=== PATIENT | female | born 1990 | race Caucasian/White ===

== ENCOUNTER 2025-08-13 07:28 | Emergency (ER) | payer BC, SELFPAY ==
--- NOTE | 2025-08-13 | ECG_ITS ---
Test Reason : CP Blood Pressure : */* mmHG Vent. Rate : 73 BPM Atrial Rate : 73 BPM P-R Int : 138 ms QRS Dur : 88 ms QT Int : 388 ms P-R-T Axes : 63 70 61 degrees QTcB Int : 427 ms Normal sinus rhythm Normal ECG No previous ECGs available Referred By: Generic ED Physician Electronically Signed By: JADE TRISTAN
[2025-08-13 07:41] VITALS: BP 96/63; PULSE 70; RESP 16; TEMP 36.4; O2SAT 100; BMI 22.2
--- OUTSIDE RECORDS SUMMARY | 2025-08-13 07:57 | XMS_ITS | Encounter Summary ---
Author Organization [facility] Address [address] [facility] [address] [place] [address] Phone Care Team Providers Care Tonnage Compilation Clerk Name Role Phone Margaret Reinoso MD Primary Care Provider [phone] Margaret Reinoso MD Unavailable [phone] Yolanda Self MD Unavailable [phone] Encounter Details Date Type Department Care Team ([facility] st Contact Info) Description 08/16/2021 Ancillary Orders [facility] 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 09/07/2039 Procedure Pass [facility] PERIOPERATIVE DEPT [address] [place] [address] Scheduled Procedures Name Priority Associated Diagnoses Date/Ti me EXCISION MASS Mass of soft tissue documented as of this encounter Visit Diagnoses Not on filedocumented in this encounter Additional Health Concerns Infection Onset Date Last Indicated Resolved Time CoV-Presumed 11/11/2021 11/11/2021 12/02/2021 1:21 AM EDT COVID-19 Comment:Per Note Documentation 01/07/2022 01/04/2022 11:47 AM EDT Assessment Noted Time PHQ-2 Depression Total Score: 0 05/07/20 20 9:17 AM EDT documented as of this encounter Care Teams Tonnage Compilation Clerk Relationship Specialty Start Date End Date Margaret Reinoso MD [address] [place] [address] [email or web address] PCP - General Family Medicine 08/28/14 Margaret Reinoso MD [address] [place] [address] [email or web address] Insurance Assigned Provider 12/12/23 Yolanda Self MD [address] [place] [phone] [email or web address] Surgeon General Surgery 09/20/24 documented as of this encounter Additional Source Comments The information contained in this document represents components of the legal health record. It is not the complete legal health record.[facility]
--- OUTSIDE RECORDS SUMMARY | 2025-08-13 07:57 | XMS_ITS | Encounter Summary ---
Author Organization [facility] Address [facility] [employer] [facility] [address] [place] [address] Phone Care Team Providers Care Sexual Assault Counsellor Name Role Phone Margaret Reinoso MD Primary Care Provider [phone] Margaret Reinoso MD Unavailable [phone] Yolanda Self MD Unavailable [phone] Encounter Details Date Type Department Care Team (Late Contact Info) Description 03/23/2020 Procedure Pass [facility] PERIOPERATIVE DEPT [address] [place], [place] [phone] Social History Tobacco Use Types Packs/Day Years Used Date Smoking Tobacco: Never Smokeless Tobacco: Never Alcohol Use Standard Drinks/Week Comments Yes 4 (1 standard drink = 0.6 oz pur e alcohol) 2-3 drinks 2x/week Comments No Sex and [...] Description 01/05/2025 11:59 PM EDT Anesthesia Event [facility] PERIOPERATIVE DEPT [address] [place] [address] Deb Hanley CNP [address] [place] [address] [email or web address] 09/07/2039 Hospital Encounter [facility] PERIOPERATIVE DEPT [address] [place] [address] Yolanda Self MD [address] [place] [address] [email or web address] 09/07/2039 Procedure Pass [facility] PERIOPERATIVE DEPT [address] [place] [address] Scheduled Procedures Name Priority Associated Diagnoses Date/Ti me EXCISION MASS Mass of soft tissue documented as of this encounter Visit Diagnoses Not on filedocumented in this encounter Additional Health Concerns Infection Onset Date Last Indicated Resolved Time CoV-Presumed 11/11/2021 11/11/2021 12/02/2021 1:21 AM EDT COVID-19 Comment:Per Note Documentation 01/07/2022 01/04/2022 11:47 AM EDT Assessment Noted Time PHQ-2 Depression Total Score: 0 04/07/20 19 9:13 AM EDT documented as of this encounter Care Teams Sexual Assault Counsellor Relationship Specialty Start Date End Date Margaret Reinoso MD [address] [place] [address] [email or web address] PCP - General Family Medicine 08/28/14 Margaret Reinoso MD [address] [place] [address] [email or web address] Insurance Assigned Provider 12/12/23 Yolanda Self MD [address] [place] [phone] (work) [email or web address] Surgeon General Surgery 09/20/24 documented as of this encounter Additional Source Comments The information contained in this document represents components of the legal health record. It is not the complete legal health record.[facility]
--- OUTSIDE RECORDS SUMMARY | 2025-08-13 07:57 | XMS_ITS | Encounter Summary ---
Author Organization [facility] Address [address] [facility] [address] [place] [address] Phone Care Team Providers Care Camera Supervisor Name Role Phone Margaret Reinoso MD Primary Care Provider [phone] Margaret Reinoso MD Unavailable [phone] Yolanda Self MD Unavailable [phone] Encounter Details Date Type Department Care Team (Latest Contact Info) Description 08/16/2021 Ancillary Orders [facility] [address] [phone] Silvino Meadows, DO 65 [facility] [address] [place], [place] [phone] [email or web address] Subcutaneous mass of back Social History Tobacco Use Types Packs/Day Years [...] Description 01/05/2025 11:59 PM EDT Anesthesia Event [facility] PERIOPERATIVE DEPT [address] [place] [address] Deb Hanley, ART MANAGER [address] [place] [address] [email or web address] 09/07/2039 Hospital Encounter [facility] PERIOPERATIVE DEPT [address] [place] [address] Yolanda Self MD [address] [place] [phone] [email or web address] 09/07/2039 Procedure Pass [facility] PERIOPERATIVE DEPT [address] [place] [address] Scheduled Procedures Name Priority Associated Diagnoses Date/Ti me EXCISION MASS Mass of soft tissue documented as of this encounter Results * US Lower Back (08/16/2021 10:58 AM EST) Anatomical Region Laterality Modality L-spine Ultrasound 08/16/2021 12:5 9 PM EST Impressions 08/16/2021 3:56 PM EST No evidence of a subcutaneous mass or fluid collection at the site of clinical concern in the left lower back. ATTESTATION: I, Dr. Shyla Paredes as teaching physician, have reviewed the images for this case and if necessary edited the report originally created by Dr. Yahir Pack. Narrative 08/16/2021 3:56 PM EST US LOWER BACK TECHNIQUE: Focused ultrasound of the left lower back at the site of the patient's clinical concern. COMPARISON: ABD/PELVIS W/ CONTRAST FINDINGS: At the site of clinical concern in the left lower back near the posterior superior iliac spine, there is no evidence of a subcutaneous mass or fluid collection. Calipers were placed over subcutaneous fat lobules, which appears similar to the right side, imaged for comparison. There is no abnormal Doppler flow. Procedure Note Shyla Paredes MD - 08/16/2021 US LOWER BACK TECHNIQUE: Focused ultrasound of the left lower back at the site of thepatient's clinical concern. COMPARISON: ABD/PELVIS W/ CONTRAST FINDINGS: At the site of clinical concern in the left lower back near the posteriorsuperior iliac spine, there is no evidence of a subcutaneous mass or fluidcollection. Calipers were placed over subcutaneous fat lobules, whichappears similar to the right side, imaged for comparison. There is noabnormal Doppler flow. IMPRESSION: No evidence of a subcutaneous mass or fluid collection at the site ofclinical concern in the left lower back. ATTESTATION: I, Dr. Shyla Paredes as teaching physician, have reviewed theimages for this case and if necessary edited the report originally createdby Dr. Yahir Pack. us Silvino Meadows DO IMG US ABDOMEN Final Result documented in this encounter Visit Diagnoses Diagnosis Subcutaneous mass of back Subcutaneous mass of back documented in this encounter Additional Health Concerns Infection Onset Date Last Indicated Resolved Time CoV-Presumed 11/11/2021 11/11/2021 12/02/2021 1:21 AM EDT COVID-19 Comment:Per Note Documentation 01/07/2022 01/04/2022 2 11:47 AM EDT Assessment Noted Time PHQ-2 Depression Total Score: 0 05/07/20 20 9:17 AM EDT documented as of this encounter Care Teams Camera Supervisor Relationship Specialty Start Date End Date Margaret Reinoso MD [address] [address] PCP - General Family Medicine 08/28/14 Margaret Reinoso MD [address] [address] Insurance Assigned Provider 12/12/23 Yolanda Self MD [address] [place] [address] [email or web address] Surgeon General Surgery 09/20/24 documented as of this encounter Additional Source Comments The information contained in this document represents components of the legal health record. It is not the complete legal health record.[facility]
--- OUTSIDE RECORDS SUMMARY | 2025-08-13 07:57 | XMS_ITS | Encounter Summary ---
Author Organization [facility] Address [facility] [employer] [facility] [address] [place] [address] Phone Care Team Providers Care Histology Manager Name Role Phone Margaret Reinoso MD Primary Care Provider Stefanie Silverio MD Unavailable [phone] Margaret Reinoso MD Unavailable [phone] Yolanda Self MD Unavailable [phone] Encounter Details Date Type Department Care Team (Late st Contact Info) Description 09/09/2018 Procedure Pass [facility] 4 ENDO DEPT [address] [facility], [address]th [place] [address] Social History Tobacco Use Types Packs/Day Years Used Date Smoking Tobacco: Never Smokeless Tobacco: Never Alcohol Use Standard Drinks/Week Comments Yes 4 (1 standard drink = 0.6 oz pure alcohol) 2-3 drinks 2x/week : recc limit Comments No Sex and Gender Information Value [...] Description 01/05/2025 11:59 PM EDT Anesthesia Event [facility] PERIOPERATIVE DEPT [address] [place] [address] Deb Hanley, TRUCK REPAIR SUPERVISOR [address] [place] [address] [email or web address] 09/07/2039 Hospital Encounter [facility] PERIOPERATIVE DEPT [address] [place] [address] Yolanda Self MD [address] [place] [address] [email or web address] 09/07/2039 Procedure Pass [facility] PERIOPERATIVE DEPT [address] [place] [address] Scheduled Procedures Name Priority Associated Diagnoses Date/Ti me EXCISION MASS Mass of soft tissue documented as of this encounter Visit Diagnoses Not on filedocumented in this encounter Additional Health Concerns Infection Onset Date Last Indicated Resolved Time CoV-Presumed 11/11/2021 11/11/2021 12/02/2021 1:21 AM EDT COVID-19 Comment:Per Note Documentation 01/07/2022 01/04/2022 11:47 AM EDT Assessment Noted Time PHQ-2 Depression Total Score: 0 10/15/19 18 5:20 PM EST documented as of this encounter Care Teams Histology Manager Relationship Specialty Start Date End Date Margaret Reinoso MD [address] [place] [address] [email or web address] PCP - General Family Medicine 08/28/14 Stefanie Silverio MD 55 [facility] [address], [place] [address] [email or web address] Insurance Assigned Provider 06/12/18 07/09/19 Margaret Reinoso MD [address] [address] [email or web address] Insurance Assigned Provider 12/12/23 Yolanda Self MD [address] [place] [address] [email or web address] Surgeon General Surgery 09/20/24 documented as of this encounter Additional Source Comments The information contained in this document represents components of the legal health record. It is not the complete legal health record.[facility]
--- OUTSIDE RECORDS SUMMARY | 2025-08-13 07:57 | XMS_ITS | Clinical Summary ---
Author Organization [facility] Address [facility] eInstruction by [employer] [facility] [address] [place] [phone] Phone Care Team Providers Care Guard Immigration Name Role Phone Margaret Reinoso MD Primary Care Provider [phone] Margaret Reinoso MD Unavailable [phone] Yolanda Self MD Unavailable [phone] Allergies Active Allergy Reactions Criticality Noted Date Comments Gluten Protein Diarrhea Medium 03/21/2020 Milk Containing Products (Dairy) Diarrhea,Nausea and/or Vomiting Medium 09/09/2018 Medications lamoTRIgine (LAMICTAL) 200 MG tablet Take 1 tablet by mouth nightly at bedtime. 4 Active levonorgestrel (MIRENA) 20 mcg/24 hr (5 years) intrauterine device Replaced 03/23/2020 5 Active clonazePAM (KLONOPIN) 1 MG tablet Take 1 mg by mouth nightly at bedtime. 8 Active cholecalciferol (VITAMIN D3) 2,000 unit capsule Take 2,000 Units by mouth daily. + CA++ Active methylcellulose (CITRUCEL) 500 mg Tab Take 1 g by mouth nightly at bedtime. Active minocycline (MINOCIN) 100 MG capsule Take 100 mg by mouth 2 (two) times a day as needed. Acne 0 Active acetylcysteine (NAC ORAL) Take by mouth. 12/2020: psych said OK ; for OCD ; plans to take Active dextroamphetamin e-amphetamine (ADDERALL XR) 25 MG 24 hr capsule Take 25 mg by mouth every morning. Restart 08/2022 Active valACYclovir (VALTREX) 1000 MG tablet TAKE 2 TABS AT 1ST ONSET, REPEAT DOSE IN 12 HOURS MAX 4 TAB/FLARE 20 tablet 4 Active betamethasone dipropionate 0.05 % ointmentIndicati ons:Dyshidrotic dermatitis Apply topically 2 (two) times a day. Apply to affected areas of the hands twice a day for two weeks on, then take two weeks off. (Two weeks on/two weeks off cycles.) 30 g 2 4 Active cyclobenzaprine (FLEXERIL) 10 MG tablet Take 1 tablet (10 mg total) by mouth 3 (three) times a day as needed (muscle spasms). caution may make drowsy; caution with driving/alcohol/ machinery 30 tablet 4 Active chlorhexidine (HIBICLENS) 4 % external liquid Apply in the shower daily x 3 days starting 2 days prior to procedure and do the 3rd treatment the morning of procedure. Follow detailed instructions provided by your surgeons office. 473 mL 5 Active psyllium husk (METAMUCIL ORAL) Take 1 Dose by mouth nightly at bedtime. Active acetaminophen (TYLENOL) 500 MG tablet Take 500-1,000 mg by mouth every 6 (six) hours as needed for pain (specific location in comments). Active mupirocin (BACTROBAN) 2 % ointmentIndicati ons:Scratch of hand, right, initial encounter Apply topically 3 (three) times a day. 30 g 5 Active Active Problems Problem Noted Date Diagnosed Date Lower back pain 11/13/2023 Overview (06/11/2024): 06/2024: MRI: no masses, L45 mild OA/small melida disc w/o signif NF, since March w/o trigger has L sciatica sx which have worsened bunion R driving foot; entire back tisha L LB; declines PT no time ; refer to physiatry; t/c prednisone ( revd SEs); t/c COX2 as NSAID cause GI ; Order flexeril; might do bunion surg 10/2024; see pt instrxn for sx mgmt ; t/c sita/elavil ( SE's revd) 03/2024: see mass of lower back; again order US , see TC , after visit 11/2023: x 2 d, Left LB; trigger heavy back pk + moved things; if pushes L LB briefly feels sx to L toes w/o numb/tingly; Neg SLR; OK DTR's/neuro exam;see pt instrxn for mgmt; Plans get massage ; T/c US for ~ 2 cm lump likely muscle knot/inflammation; recc heat/ice bid x 2 weeks Onychomycosis 08/20/2023 Overview (08/20/2023): 08/2023: L thumb see picture; few weeks; f/u w/ derm to confirm; Order penlac; t/c lamisil x 3 mo w/ LFT baseline ( last LFT OK 12/2022 scanned) and 1 mo on lamisil Hypoglycemia 12/08/2022 Overview (12/08/2022): 12/2022: glu 55 non fast, had coff/toast , No H/o syncope; no hypoglycemia sx; recc avoid long periods of fast, have prot q meal/snack; ( could be false neg if specimen not run fast after draw) Family history of arrhythmia 12/08/2022 Overview (12/08/2022): 12/2022: brother 27 yo , dad has it too; EKG today Poss ectopic atrial rhythm Chest pain 12/08/2022 Overview (12/08/2022): 12/2022: far lateral Left chest > palpitations, occurs when has work stress; EKG today : Poss ectopic atrial rhythm; PE labs OK COVID-19 11/12/2021 Overview (01/07/2022): 01/07/22: after visit covid PCR Pos 01/04 [facility] w/ sx started 01/01 w/ neg home test 11/14/2021: Mild chest tightness exacerbated by coughing o/w no red flag symptoms. Would consider covid positive and 11/11 day 0. Not high risk and boosted. Isolation guidelines discussed. OTC/home remedies discussed. ED precautions discussed. 11/11/2021: covid Ag POS 11/11/21; [facility] pend; see PG for ER parameters, contact precautions Rotator cuff disorder, right 11/12/2021 Overview (11/12/2021): 11/2021: since Jun; no trigger; Recc 2 weeks rest, activity as tolerated, avoid aggravating positions/activities, ice > heat 20min 2x/d , aleve 1 tab qd w/ food x 2 weeks , topicals ( biofreez,) order PT, after visit sent stretches, t/c ortho who will order scan if needed Gynecomastia 08/21/2021 Overview (08/21/2021): 08/2021: b/l w/o d/c; has IUD so no periods; sees [facility] tomorrow for LLQ mild discomfort; Left chest wall pain suspect MSK; recc rest x 2 weeks/activity as tolerated, heat/ice, tyl/advil prn ; Order estradiol/prolactin + early PE labs( ALL OK) Palpable mass of lower back 07/02/2021 Overview (09/26/2024): 09/2024:Yolanda Self MD Surgeon: concerned this would not alleviate her back pain which sounds more related to a disc or nerve issue given the radiation down her buttock. She seems quite dismayed by this and plans to speak with her pain doctor, after visit 06/2024: MRI: no masses, L45 mild OA/small melida disc, pt wants explanation why 05/2024 US said lump grew from 3+ cm to 4+ cm, when it was said the 08/2021 US was Neg, concerned how long was there and nothing done; I'll have to ask radiologist, h/w MRI confirms 1st US, no masses 03/2024: again order US ( 05/2024 : partially encapsulated lipoma w/ interval growth/internal vascularity, recc MRI ) see TC after visit , see LBP 06/2021:AY: Noticed last week. Was initially painful but improving. Mobile. Approx 1.5 cm. Medial to the left PSIS. Most likely lipoma vs cyst.- US ordered ( NEG 08/2021) OVERVIEW: see LBP Cold sore 12/17/2020 Overview (01/03/2024): 12/2023: ?R; see picture ; PG/TC; cluster R nares vesicular w/o yell crust; Order valtrex 1gm tid x 7d in case early shingles; keep appt in 2d( was unable to come to appt work emergency, got lesions in mouth as well, better now, opted not to take Valtrex shingles dose, though did crab picker) 12/17/2020: R lower lip pink solitary papule w/o crust, w/o vesicle, started 12/13 ( day 4); 3rd flare in 6 weeks ; monitor freq flares w/ std high dose abortive regimen OVERVIEW: X years; R lip favorite side > L , not sure if 1st time on L or not said 12/2020; h/o under nose as well; Revd Contagious, speed matters, risk resistance if take prevention dose duration 4-12 months; Valtrex:SE: depression, aches, dysmenorrhea, elev LFT, plts , photosensitivity MEDS: Valtrex 1gm take 2 tabs 1st onset, repeat in 12 hr; max 4 tab/flare 12/2020 switch from 500mg bid x 3 d/flare Tinea pedis 12/17/2020 Overview (12/17/2020): 12/2020: she used lotrimin Ultra bid x 1 week (other option on tube was qd x 4 weeks) , good about changing shoes/socks. Still there a little bit. Recc retreat Bid x 2 weeks Regular astigmatism of both eyes 11/23/2020 Intrauterine device 04/26/2019 Overview (05/07/2020): mirena 12/2014, replaced 03/2020 by seafood and service meat manager Other acne 04/07/2019 Overview (12/30/2020): 12/2020: after visit notice from [facility] derm 04/2020: sees derm 04/2019: cystic , derm at [facility] , plans off spironolactone 100mg and start accutane , get copy of recent labs; s/p I& D once on face . S/p minocin for perioral dermatitis MEDS: Doxy 100mg bid prn Gastroparesis 06/09/2018 Overview (05/07/2020): 04/2020: plans GI appt soon for recent flare gastroparesis 04/2019: stable not IBS off EES 09/2018: after visit : EGD neg HPylori/Celiac; mild inflammation; cont gastroparesis mgmt 06/2018: after visit per [facility] Dr Stefanie Silverio: MILD DELAY IN STOMACH EMPTYING, TAKE ERYTHROMYCIN 50 MG THREE TO FOUR TIMES DAILY, 1/2 HOUR BEFORE MEALS AND AT BEDTIME. YOU CAN TAKE THIS MEDICATION NEEDED. IF YOU TAKE IT DAILY, CYCLE IT: 2 WEEKS ON, 1 WEEK OFF. MEDS: H/o EES ineffective citrucel qd b/c not allowed dietary fiber Dairy free + low gluten Omeprazole 20 mg qd Gastroesophageal reflux disease 10/15/2017 Overview (12/08/2022): 12/2022: cont prilosec OTC prn rare use ; see gastroparesis 09/2018: EGD gastritis 05/2018: GI Dr Silverio :mild delay gastric empty scan, recc low fat, low fiber 12/2017: again lifestyle for epig pain 3 nights/bloating/nausea; eating makes it better as does BM; stop flacotzer OVERVIEW: s/p celiac Ab, HPylori Ab, CRP in 09/2015 MEDS: citrucel qd Dairy free + low gluten Omeprazole 20 mg qd prn by 12/2022; h/o qd H/o EES ineffective S/p recc Mylanta gas 12/2017 S/p recc simethicone 12/2017 Proteinuria 10/15/2017 Overview (10/15/2017): 10/2017: UA per psych for Li++ had 1-2 + protein. Recc rechk. Physical exam 04/12/2014 Overview (01/22/2023): 12/08/22 EKG for CP/palpit 12/2022 for fam Hx bro @ 28yo w/ Afib PAP 11/2021; h/o 03/2020 dysplasia on Bx colpo; has Dr Mojica Dad w/ precancer polyps she showed me letter 12/2022, ( see PG from pt she asked Dr Chowdhury office and was told can get scope regular time) 07/2019 : CBC, FLP, LFT OK partial PE labs, declines TSH/kidney/glu H/o labs for Li+ q [address] Diana (asked cc me on all labs please, she agrees) H/o recc once before 31yo get FLP , declines today s/p yet again ca++ 1000mg/day diet sheet S/p Declines recc urine GC/Chlam today , got seafood and service meat manager Specialist: [facility], psych , not FURNACE REPAIR MECHANIC Michele also does therapy; still plans podiatry for new orthotics , has energy conservation representative , GI Dr Chowdhury( told her ask him re 1st colo timing) Bipolar disorder 10/08/2012 Overview (12/08/2022): 12/2022:PHQ10/GAD10; Dr Madison(2020) psych q week req EKG for ADD meds,dad/ 20 yo brother had Afib; cont [id number]/lamictal 200mg; restarted Adderall XR 25mg 08/2022: stable; Dr Mariana Diana met 04/2017(sees q week) OVERVIEW: + OCD; no past hosp or suicide attempts; AVOID: adderall/straterra = kd, zoloft kd, zyprexa akithisia; s/p again aware needs planned preg (currently has IUD from seafood and service meat manager );04/23: EKG to eval QTC and ? Start for anafrinil. EKG show QTC 412ms. As per up to date normal QTC for woman <450ms. Recc minimize pot/etoh Medication: Adderall XR 25mg qd restart 12/2022; h/o college use Lamotrigine 200 MG PO QD, again recc planned preg Klonopin 1mg qhs inc 12/2022; h/o 0.5mg avg 2-3 d/wk OFF said 04/2019 Jacobus 300 MG BID, no need OFF Melatonin 5mg qhs prn OFF 04/2020 Trilafon ( perphenazine) 2mg bid H/o wellbutrin Resolved Problems Problem Noted Date Diagnosed Date Resolved Date S/P LEEP 05/07/2020 12/08/2022 Overview (05/07/2020): 04/2020: [facility] Dr Magana hi grade dysplasia on colpo Constipation 10/15/2017 11/12/2021 Overview (01/03/2018): 12/2017: Assessmed: baseline; s/p fluids, fiber , fitness; see GERD;s/p celiac Ab, HPylori Ab, CRP in 09/2015 MEDS: Colace qd said 12/2017 Fibercon 12/2017: recc simethicone/mylanta gas Presence of intrauterine contraceptive device 04/02/20 17 05/07/2020 Overview (04/02/2017): Mirena 12/2104 Uncoded Oral contraception 04/03/2014 0 04/29/2016 Overview (10/28/2014): Oral contraception Immunizations Immunization Administration Dates Next Due COVID-19 (Pre-06/29) Pfizer Vaccine, mRNA, PF 12/27/2020 DTaP, unspecified formulation 05/02/1996 ,11/09/1992,1991,08/25,1991 HPV,quadrivalent 03/29/2007,11/09/2006, 7 Hepatitis B, unspecified formulation 10/31/2003, 04/24/2003,05/03/2002 Hib, unspecified formulation 07/27/1992, 1991,1991,07/05 Influenza Quadrivalent MDCK Preservative Free IM 09/27/2023,06/12/2020,06/04/2019 Influenza Quadrivalent Prese rvative Free IM 06/23/2022,07/02/2021,05/06/2018,08/14,07/16/2015 Influenza, Unspecified Formulation 06/04,06/08/2017,05/30/2009,07/01,07/05/2007,08/15/2006,10/15/2004 ,07/04/2003 MMR 05/02/1996,07/27/1992 Meningococcal MCV4P 04/17/2011,06/02/2006 Polio, Unspecified Formulation 6,11/09/1992,1991,07/05 Rabies Unspecified Formulation 3,05/09/1993,05/08/1993,05/04,05/03/1993,05/02/1993 Td, unspecified formulation 04/18/2004 Tdap 06/20/2019,04/08/2010 Family History Medical History Relation Comments Anxiety disorder Brother Atrial fibrillation Father Atrial fibri llation Anxiety disorder Maternal Aunt Dementia Maternal Grandfather Hypertension Maternal Grandfather Dementia Maternal Grandmother Glaucoma Maternal Grandmother Anxiety disorder Mother Pancreatic cancer Paternal Grandfather Stomach cancer Paternal Grandmother more likely than colon Breast cancer Neg Hx Colon cancer Neg Hx Coronary artery disease Neg Hx Diabetes Neg Hx Macular degeneration Neg Hx Melanoma Neg Hx Ovarian cancer Neg Hx Stroke Neg Hx Relation Status Comments Brother Father Maternal Aunt Maternal Grandfather Maternal Grandmother Mother Paternal Grandfather Paternal Grandmother Social History Tobacco Use Types Packs/Day Years Used Date Smoking Tobacco: Never Passive Smoke Exposure: Never Smokeless Tobacco: Never Alcohol Use Standard Drinks/Week Comments Not Currently 0 (1 standard drink = 0.6 oz pur e alcohol) 1-2 drinks 0 - 2x/week Education Answer Date Recorded Are you interested in more education? Not on velasquez e 01/07/2023 Are you concerned about learning? Not on file 01/07/2023 No 01/07/2023 No 01/07/2023 Digital Access Answer Date Recorded No 02/01/2023 No 02/01/2023 Reliable internet access at home? Not on file 02/01/2023 Device with a working camera? Not on file Intimate Partner Violence Answer Date R ecorded Are you denied basic needs s uch as food, clothing, or medical care? No 02/13/2025 In the past 12 months have y ou been in a relationship with a person who hurts, threatens, or tries to control you? No 02/13/2025 Are you denied basic needs s uch as food, clothing, or medical care? No 02/13/2025 In the past 12 months have y ou been in a relationship with a person who hurts, threatens, or tries to control you? 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 Not on file Not on file Not on file Last Filed Vital Signs Vital Sign Reading Time Taken Comments Blood Pressure 126/69 02/13/2025 9:36 PM EDT Pulse 75 02/13/2025 9:36 PM EDT Temperature 37 C (98.6 F) 02/13/2025 9:36 PM EDT Respiratory Rate 16 02/13/2025 9:36 PM EDT Oxygen Saturation 100% 02/13/2025 9:36 PM EDT Inhaled Oxygen Concentration - - Weight 59 kg (130 lb) 02/13/2025 9:36 PM EDT Height 162.6 cm (5' 4 ) 02/13/2025 9:36 PM EDT Body Mass Index 22.31 02/13/2025 9:36 PM EDT Plan of Treatment Upcoming Encounters Date Type Department Care Team (Late st Contact Info) Description 01/05/2025 11:59 PM EDT Anesthesia Event [facility] PERIOPERATIVE DEPT [address] [place] [address] Deb Hanley, BRIDGE PAINTER HELPER [address] [place] [address] 09/07/2039 Hospital Encounter [facility] PERIOPERATIVE DEPT [address] [place] [address] Yolanda Self MD [address] [place], [place] [id number] [email or web address] 09/07/2039 Procedure Pass [facility] PERIOPERATIVE DEPT [address] [place] [address] Scheduled Procedures Name Priority Associated Diagnoses Date/Ti me EXCISION MASS Mass of soft tissue Health Maintenance Due Date Last Done Comments PAP SMEAR 12/03/2024 12/03/2021, 11/06, 03/27/2021, Additional history exists INFLUENZA VACCINE (#1) 2025 , 09/27/2023, 06/23/2022, Additional history exists COVID-19 VACCINE ( season) 2025 09/27/2023, 06/23/2022, 08/04/2021, Additional history exists DEPRESSION SCREENING 09/13/2025 09/13/2024, 08/19/20 23 IUD 03/23/2028 03/23/2020 Adult Td,Tdap Booster 06/20/2029 06/20/2019 , 04/08/2010, 04/18/2004 HIB VACCINES Completed 07/27/1992, 10/09, 1991, Additional history exists MENINGOCOCCAL VACCINES (ACWY) Aged Out 04/17/2011, 06/02/2006 No longer eligibl e based on patient's age to complete this topic HEPATITIS C SCREENING Completed 11/16/2018 , 11/16/2018, 11/16/2018, Additional history exists HIV ONE-TIME SCREENING (18-65 YEARS) Completed 11/16/2018 SMOKING STATUS SCREENING (Once After 26 Yrs) Completed 04/16/2025 HEPATITIS A VACCINES Aged Out No long er eligible based on patient's age to complete this topic MENINGOCOCCAL VACCINES (B) Aged Out N o longer eligible based on patient's age to complete this topic PNEUMOCOCCAL VACCINES (0-49 years) Aged Out No longer eligible based on patient's age to complete this topic Medical Devices Implanted Type Area Salesperson [employer] Device Identifier Shelf Expiration Date Model / Serial / Lot Mirena Device Contraceptive 52mg Iud Mirena - Must Order In Multiples Of 5 - [id number] Implanted:Qty: 1 on 03/23/2020 by Kwasi Jarvis MD at [facility] N/A: Uterus [employer] 03/06/2022 [id number] / / [id number] Procedures Procedure Name Priority Date/Time Associated Diagnosis Comments PAP TEST Routine 12/03/2021 12:00 AM EDT HEPATITIS C ANTIBODY, QUALITATIVE Routine 11/16/2018 8:31 AM EDT Concern about sexually transmitted disease in female without diagnosis from Last 3 Months or Most Recently Relevant to Health Maintenance Results * Pap Smear (12/03/2021 12:00 AM EDT) 12/03/2021 12/04/2021 10: 13 AM EDT Narrative SEE NARRATIVE - 12/12/2021 12:58 PM EDT [facility] [address] [place] [address] DRUG ABUSE WORKER Cytology Report FINAL DIAGNOSIS A. CERVICAL, LIQUID BASED SPECIMEN: SPECIMEN ADEQUACY: Satisfactory for evaluation; transformation zone present. INTERPRETATION: NEGATIVE FOR INTRAEPITHELIAL LESION OR MALIGNANCY. Electronically Signed Out By: ALEXIA Silva(ASCP) ALEXIA Ryan (ASCP) Cervical cytology is a screening test primarily for squamous cancers and precursors and has associated false-negative and false-positive results. New technologies such as liquid-based preparations may decrease but will not eliminate all false-negative results. Regular sampling and follow-up of unexplained clinical signs and symptoms are recommended to minimize false negative results. Interpretation of this material was performed at: [facility], Department of Pathology [address] [place] [address] Correspondence Clerk: Jarrod Vila M.D. CLINICAL HISTORY Date of Last Menstrual Period: Not Provided Contraceptive History: IUD Treatment History: LEEP: s/p 03/2020 Other Clinical Conditions: Abnormal PAP: ANISHA II SPECIMEN SOURCE A: CERVICAL, LIQUID BASED SPECIMEN GROSS DESCRIPTION One ThinPrep vial received. Patient Name: DALY AVENDAÑO : 1990 (Age: 31) Sex: F Institution: [facility] Location: [facility] Date of Collection: 12/03/2021 Date of Reported: 12/12/2021 12:58 Results to: Maggie Zimmerman MD us Maggie Zimmerman MD CYTOLOGY ORDERABLES Final Result SEE NARRATIVE * Hepatitis C antibody, qualitative (11/16/2018 8:31 AM EDT) HCV ANTIBODY Negative Negative [facility] Comment:Test Methodology: Ad via [employer] XP 11/16/2018 8:31 AM EDT 11/16/2018 11:23 AM EDT us Maggie Zimmerman MD LAB BLOOD BKR ORDERABLES F inal Result Performing Organization Address City/[facility]/ZIP Co de Phone Number [facility] [address] [place] [address] from Last 3 Months or Most Recently Relevant to Health Maintenance [place] [address] [place] [address] PPO EPO [facility] PPO EPO [facility] PPO EPO [facility] PPO [facility]PO [facility] PPO EPO [facility] PPO EPO [facility] PPO EPO [facility] PPO EPO [facility] PPO EPO [facility] PPO EPO [facility] PPO [facility]PO [facility] PPO EPO [facility] PPO EPO [facility] PPO EPO [facility] PPO EPO Care Teams Guard Immigration Relationship Specialty Start Date End Date Margaret Reinoso MD [address] [place] [address] [phone] [email or web address] PCP - General Family Medicine 08/28/14 Margaret Reinoso MD [address] [place] [address] [phone] [email or web address] Insurance Assigned Provider 12/12/23 Yolanda Self MD [address] [place] [id number] [email or web address] Surgeon General Surgery 09/20/24 Additional Source Comments The information contained in this document represents components of the legal health record. It is not the complete legal health record.[facility]
--- OUTSIDE RECORDS SUMMARY | 2025-08-13 07:57 | XMS_ITS | Encounter Summary ---
Author Organization [facility] Address [address] [facility] [address] [place] [address] Phone Care Team Providers Care Doctor Podiatric Medicine Name Role Phone Margaret Reinoso MD Primary Care Provider [phone] Margaret Reinoso MD Unavailable [phone] Yolanda Self MD Unavailable [phone] Encounter Details Date Type Department Care Team (Late st Contact Info) Description 05/18/2024 Procedure [facility] - MRI, Main [place] [address] [place] [address] Social History Tobacco Use Types Packs/Day Years [...] Intimate Partner Violence Answer Date R ecorded Denied Basic Needs Not on file 12/07/2022 In the past 12 months have y ou been in a relationship with a person who hurts, threatens, or tries to control you? No 12/07/2022 Worried food would run out Not on file 12/07 In the past 12 months have y ou been in a relationship with a person who hurts, threatens, or tries to control you? No 12/07/2022 Comments No Sex and Gender Information Value [...] Description 01/05/2025 11:59 PM EDT Anesthesia Event [facility] PERIOPERATIVE DEPT [address] [place] [address] Deb Hanley, LANDSCAPER HELPER [address] [place] [address] [email or web address] 09/07/2039 Hospital Encounter [facility] PERIOPERATIVE DEPT [address] [place] [address] Yolanda Self MD [address] [place] [address] [email or web address] [email or web address] 09/07/2039 Procedure Pass [facility] PERIOPERATIVE DEPT [address] [place] [address] Scheduled Procedures Name Priority Associated Diagnoses Date/Ti me EXCISION MASS Mass of soft tissue documented as of this encounter Visit Diagnoses Not on filedocumented in this encounter Additional Health Concerns Assessment Noted Time PHQ-9 Depression Total Score: 8 08/19/20 23 11:21 PM EST PHQ-2 Depression Total Score: 2 08/19/20 23 11:21 PM EST documented as of this encounter Care Teams Doctor Podiatric Medicine Relationship Specialty Start Date End Date Margaret Reinoso MD [address] [place] [address] [email or web address] PCP - General Family Medicine 08/28/14 Margaret Reinoso MD [address] [place] [address] [email or web address] Insurance Assigned Provider 12/12/23 Yolanda Self MD [address] [place] [address] [email or web address] Surgeon General Surgery 09/20/24 documented as of this encounter Additional Source Comments The information contained in this document represents components of the legal health record. It is not the complete legal health record.[facility]
--- OUTSIDE RECORDS SUMMARY | 2025-08-13 07:57 | XMS_ITS | Encounter Summary ---
Author Organization [facility] Address [address] [place] [address] Phone Care Team Providers Care Professor Of Radiology Name Role Phone Margaret Reinoso MD Primary Care Provider Margaret Reinoso MD Unavailable [phone] Margaret Reinoso MD Unavailable [phone] Margaret Reinoso MD Unavailable [phone] Stefanie Silverio MD Unavailable [phone] Margaret Reinoso MD Unavailable [phone] Yolanda Self MD Unavailable [phone] Reason for Referral * Consultation (Within 2 weeks) - Closed Specialty Diagnoses / Procedures Referred By Chinmay morgan Referred To Contact Gastroenterology Diagnoses Encounter for consultation Richar Woody MD, PhD Phone: tel: fax: mailto:[email or web address] Stefanie Gallegos MD Phone: tel: fax: mailto:[email or web address] beds at [facility] Referral ID Status Reason Start Date Expiration Date Visits Re quested Visits Authorized [id number] Closed 10/17/2015 10/17/2016 1 1 Encounter Details Date Type Department Care Team (Latest Contact Info) Description 10/17/2015 Transcribe Orders [facility] Cardiology Division [address] [facility], [address] [place] [address] Richar Woody MD, PhD [address] [facility] [address] [place] [address] [email or web address] Encounter for consultation (Primary Dx) Social History Tobacco Use Types Packs/Day Years Used Date Smoking Tobacco: Never Comments Unknown Sex and Gender Information Value Date Recorded Sex Assigned at Female 05/15/2021 2:29 PM EDT Legal Sex Female 5:18 PM EST Gender Identity Female 05/15/2021 2:29 PM EDT Sexual Orientation Straight 05/15/2021 2: 29 PM EDT documented as of this encounter Plan of Treatment Upcoming Encounters Date Type Department Care Team (Late st Contact Info) Description 01/05/2025 11:59 PM EDT Anesthesia Event [facility] PERIOPERATIVE DEPT [address] [place] [address] Deb Hanley, NIURKA [address] [place] [address] [email or web address] 09/07/2039 Hospital Encounter [facility] PERIOPERATIVE DEPT [address] [place] [address] Yolanda Self MD [address] [place] [address] [email or web address] 09/07/2039 Procedure Pass [facility] PERIOPERATIVE DEPT [address] [place] [address] Scheduled Procedures Name Priority Associated Diagnoses Date/Ti me EXCISION MASS Mass of soft tissue Scheduled Referrals Name Type Priority Associated Diagnoses Order Schedule Ambulatory referral to [facility] Gastroenterology Outpatient Referral Routine Encounter for consultation Ordered: 10/17/2015 documented as of this encounter Visit Diagnoses Diagnosis Encounter for consultation- Primary documented in this encounter Additional Health Concerns Infection Onset Date Last Indicated Resolved Time CoV-Presumed 11/11/2021 11/11/2021 12/02/2021 1:21 AM EDT COVID-19 Comment:Per Note Documentation 01/07/2022 01/04/2022 11:47 AM EDT documented as of this encounter Care Teams Professor Of Radiology Relationship Specialty Start Date End Date Margaret Reinoso MD [address] [address] [email or web address] PCP - General Family Medicine 08/28/14 Margaret Reinoso MD [address] [address] [email or web address] Partners Attributed Provider 02/24/15 11/11/15 Margaret Reinoso MD [address] [address] [email or web address] Insurance Assigned Provider 11/11/15 08/08/17 Margaret Reinoso MD [address] [address] [email or web address] Partners Attributed Provider 09/12/17 10/03/17 Stefanie Silverio MD [address] [place] [address] [email or web address] Insurance Assigned Provider 06/12/18 07/09/19 Margaret Reinoso MD [address] [address] [email or web address] Insurance Assigned Provider 12/12/23 Yolanda Self MD [address] [place] [address] [email or web address] Surgeon General Surgery 09/20/24 documented as of this encounter Additional Source Comments The information contained in this document represents components of the legal health record. It is not the complete legal health record.[facility]
--- OUTSIDE RECORDS SUMMARY | 2025-08-13 07:57 | XMS_ITS | Encounter Summary ---
Author Organization [facility] Address [address] [facility] [address] [place] [address] Phone Care Team Providers Care Insurance Claim Representative Name Role Phone Margaret Reinoso MD Primary Care Provider [phone] Margaret Reinoso MD Unavailable [phone] Yolanda Self MD Unavailable [phone] Encounter Details Date Type Department Care Team ([facility] st Contact Info) Description 08/21/2021 Transcribe Orders [facility] [address] [place], [place] [phone] Margaret Reinoso MD [address] [address] [email or web address] Social History Tobacco Use Types Packs/Day Years [...] Description 01/05/2025 11:59 PM EDT Anesthesia Event [facility] PERIOPERATIVE DEPT [address] [place] [address] Deb Hanley, NIURKA [address] [place] [address] [email or web address] 09/07/2039 Hospital Encounter [facility] PERIOPERATIVE DEPT [address] [place] [address] Yolanda Self MD [address] [place] [address] [email or web address] 09/07/2039 Procedure Pass [facility] PERIOPERATIVE DEPT [address] [place] [address] Scheduled Procedures Name Priority Associated Diagnoses Date/Ti me EXCISION MASS Mass of soft tissue documented as of this encounter Visit Diagnoses Not on filedocumented in this encounter Additional Health Concerns Infection Onset Date Last Indicated Resolved Time CoV-Presumed 11/11/2021 11/11/2021 12/02/2021 1:21 AM EDT COVID-19 Comment:Per Note Documentation 01/07/2022 01/04/2022 11:47 AM EDT Assessment Noted Time PHQ-2 Depression Total Score: 0 08/21/20 21 9:30 AM EST documented as of this encounter Care Teams Insurance Claim Representative Relationship Specialty Start Date End Date Margaret Reinoso MD [address] [place] [address] [email or web address] PCP - General Family Medicine 08/28/14 Margaret Reinoso MD [address] [place] [address] [email or web address] Insurance Assigned Provider 12/12/23 Yolanda Self MD [address] [place] [address] [email or web address] Surgeon General Surgery 09/20/24 documented as of this encounter Additional Source Comments The information contained in this document represents components of the legal health record. It is not the complete legal health record.[facility]
--- OUTSIDE RECORDS SUMMARY | 2025-08-13 07:57 | XMS_ITS | Encounter Summary ---
Author Organization [facility] Address [facility] [employer] [facility] [address] [place] [address] Phone Care Team Providers Care Build Technician Name Role Phone Margaret Reinoso MD Primary Care Provider [phone] Stefanie Silverio MD Unavailable [phone] Margaret Reinoso MD Unavailable [phone] Yolanda Self MD Unavailable [phone] Encounter Details Date Type Department Care Team (Late st Contact Info) Description 10/15/2017 Transcribe Orders [facility] Lab Main [address] [place] [address] Margaret Reinoso MD [address] [address] [email or web address] Social History Tobacco Use Types Packs/Day Years Used Date Smoking Tobacco: Never Smokeless Tobacco: Never Alcohol Use Standard Drinks/Week Comments Yes 6 (1 standard drink = 0.6 oz pure alcohol) 2-3 drinks 2x/week : recc limit Comments No Sex and Gender Information Value Date Recorded Sex Assigned at Female 05/15/2021 2:29 PM EDT Legal Sex Female 5:18 PM EST Gender Identity Female 05/15/2021 2:29 PM EDT Sexual Orientation Straight 05/15/2021 2: 29 PM EDT 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 Not on file Not on file documented as of this encounter Plan of Treatment Upcoming Encounters Date Type Department Care Team (Late st Contact Info) Description 01/05/2025 11:59 PM EDT Anesthesia Event [facility] PERIOPERATIVE DEPT [address] [place] [address] Deb Hanley, FLATTENING MACHINE OPERATOR [address] [place] [address] [email or web address] 09/07/2039 Hospital Encounter [facility] PERIOPERATIVE DEPT [address] [place] [address] Yolanda Self MD [address] [place] [address] [email or web address] .[email or web address] 09/07/2039 Procedure Pass [facility] PERIOPERATIVE DEPT [address] [place] [address] Scheduled Procedures Name Priority Associated Diagnoses Date/Ti [...] documented as of this encounter Care Teams Build Technician Relationship Specialty Start Date End Date Margaret Reinoso MD [address] [place] [phone] [email or web address] PCP - General Family Medicine 08/28/14 Stefanie Silverio MD [address] [facility] [address], [place] [address] [email or web address] Insurance Assigned Provider 06/12/18 07/09/19 Margaret Reinoso MD [address] [place] [address] [email or web address] Insurance Assigned Provider 12/12/23 Yolanda Self MD [address] [place] [address] [email or web address] Surgeon General Surgery 09/20/24 documented as of this encounter Additional Source Comments The information contained in this document represents components of the legal health record. It is not the complete legal health record.[facility]
--- OUTSIDE RECORDS SUMMARY | 2025-08-13 07:57 | XMS_ITS | Encounter Summary ---
Author Organization [facility] Address [facility] [employer] [facility] [address] [place] [address] Phone Care Team Providers Care Hearing Aid Consultant Name Role Phone Margaret Reinoso MD Primary Care Provider [phone] Margaret Reinoso MD Unavailable [phone] Yolanda Self MD Unavailable [phone] Encounter Details Date Type Department Care Team (Late st Contact Info) Description 08/17/2024 Ancillary Orders [facility] [address] [place] [address] Nelda Rodas MD, MS [address] [place] [address] [email or web address] Other chronic pain (Primary Dx) Social History Tobacco Use Types [...] Description 01/05/2025 11:59 PM EDT Anesthesia Event [facility] PERIOPERATIVE DEPT [address] [place] [address] Deb Hanley CNP [address] [place] [address] 09/07/2039 Hospital Encounter [facility] PERIOPERATIVE DEPT [address] [place] [address] Yolanda Self MD [address] [place] [address] [email or web address] 09/07/2039 Procedure Pass [facility] PERIOPERATIVE DEPT [address] [place] [address] Scheduled Procedures Name Priority Associated Diagnoses Date/Ti me EXCISION MASS Mass of soft tissue documented as of this encounter Results * [place] Pain Management (08/22/2024 10:51 AM EST) Narrative [facility] IMG INTERFACES - 08/22/2024 10:51 AM EST Fluoroscopy was provided during this procedure. us Nelda Rodas MD, MS IMG [place] EXAMS Final Resu lt [facility] IMG INTERFACES documented in this encounter Visit Diagnoses Diagnosis Other chronic pain- Primary Other chronic pain documented in this encounter Additional Health Concerns Assessment Noted Time PHQ-9 Depression Total Score: 8 08/19/20 23 11:21 PM EST PHQ-2 Depression Total Score: 2 08/19/20 11:21 PM EST documented as of this encounter Care Teams Hearing Aid Consultant Relationship Specialty Start Date End Date Margaret Reinoso MD [address] [place] [address] [email or web address] PCP - General Family Medicine 08/28/14 Margaret Reinoso MD [address] [place] [address] Insurance Assigned Provider 12/12/23 Yolanda Self MD [address] [place] [address] [email or web address] Surgeon General Surgery 09/20/24 documented as of this encounter Additional Source Comments The information contained in this document represents components of the legal health record. It is not the complete legal health record.[facility]
--- NOTE | 2025-08-13 08:05 | ED_ITS ---
HPI - Chest Pain General Chief Complaint: Chest Pain Stated Complaint: CP Time Seen by Provider: 08/13/25 08:05 Source: patient Mode of arrival: ambulatory Limitations: no limitations History of Present Illness ED Provider: HPI narrative: 35-year-old woman with a history of anxiety, under lot of stress, has been having left-sided chest pain going down to her left arm and left jaw, she states overnight she went to [facility] had chest x-ray blood work done and then because of prolonged wait left without results, no fevers or chills no cough, no hemoptysis, she has IUD not on control pills, no recent travels or surgeries reported. No IV drug use. Related Data Allergies Allergy/AdvReac Type Severity Reaction Status Date / Time No Known Allergies Allergy Verified 08/13/25 07:49 Review of Systems 2 Constitutional: Constitutional: Reports as per [facility] Social History Social History Smoked in Last 30 Days: No Use of substances other than those prescribed or required for medical reasons: No Advance Directives: No Advance Directives Information Provided: Yes Do you have a plan to hurt others: No Plan Patient : No Physical Exam 2 Exam: Exam: General: looks age appropriate PERRLA, EOMI, MMM, Neck: Supple, no LAD CV: RRR, no obvious murmurs appreciated Resp: ?No wheezing rales rhonchi no stridor moving air, minimal chest wall tenderness Abd: ?Bowel sounds are present, no tenderness no rebound no rigidity MSK: FROM, strength 5/5 all extremities, negative impingement left upper extremity, distal pulses intact bilateral upper extremities Skin: Warm, dry, intact, Neuro: ?Alert and oriented x3, moving upper and lower extremities symmetrically, no obvious facial asymmetry noted, cranial nerves 2-12 intact slightly anxious, no SI or HI Vital Signs: Vital Signs: Last Vital Signs Temp 98.0 F 08/13/25 08:12 Pulse 85 08/13/25 08:12 Resp 12 08/13/25 08:12 BP 103/63 08/13/25 08:12 Pulse Ox 100 08/13/25 08:12 O2 Del Method Room Air 08/13/25 08:12 BMI result Body Mass Index 22.2 Medications Administered Discontinued Medications Generic Name Dose Route Start Last Admin Trade Name Freq PRN Reason Stop Dose Admin Diazepam 2.5 mg 08/13/25 08:32 08/13/25 08:41 Diazepam 10 Mg/2 Ml Cartridge IVPUSH 08/13/25 08:33 2.5 mg STAT STA Administration Ketorolac Tromethamine 15 mg 08/13/25 08:32 08/13/25 08:41 Ketorolac Tromethamine 15 Mg/Ml Vial IVPUSH 08/13/25 08:33 15 mg ONCE ONE Administration Medical Decision Making Medical Decision Making [facility] Narrative: 8:39 AM 08/13/2025 (Dr. Tobin Easley): We will attempt to review [facility] records if able to see your chest x-ray we will hold off on chest x-ray here, differential as below, she is PERC negative, ECG without any changes to suspect underlying ACS or dysrhythmia, this is not the pain of sudden onset radiating to the back to suspect aortic dissection, did not feel further imaging such as CT is indicated at this time she does self endorse being under lot of stress since the summer and also quit smoking in the summer, no SI or HI 8:48 AM 08/13/2025 (Dr. Tobin Easley): [facility] records reviewed, patient given apple juice she was slightly hypoglycemic without any other symptoms Differential Diagnosis Differential Diagnoses: The differential diagnosis associated with the presentation includes ( ACS, pneumothorax, aortic dissection, PE, Boerhaave syndrome) Admission/Observation Consideration of admission/observation: Escalation of care including admission/observation considered Lab Data [facility] Lab Attestation statement: I reviewed the patient's lab results. 08/13/25 08:22 08/13/25 08:22 Labs: Lab Results 08/13/25 Range/Units 08:22 WBC 4.2 L (4.8-10.8) X10*3/uL RBC 4.24 (4.20-5.50) X10*6/uL Hgb 13.4 (12.0-16.0) g/dl Hct 39.4 (37.0-47.0) % MCV 92.9 (80.0-98.0) fL MCH 31.6 (27.0-33.0) pg MCHC 34.0 (31.0-35.0) g/dl RDW 12.1 (11.0-16.0) % Plt Count 157 L (160-400) X10*3/uL MPV 9.8 (9.4-12.3) fL Immature Gran % (Auto) 0.0 (0.0-0.4) % Neut % (Auto) 42.9 L (45-73) % Lymph % (Auto) 43.3 H (20-40) % Hale % (Auto) 11.4 H (2-11) % Eos % (Auto) 1.4 (0-4) % Baso % (Auto) 1.0 (0-2) % Lymph # (Auto) 1.8 (1.2-4.9) X10*3/uL Hale # (Auto) 0.5 (0.1-1.2) X10*3/uL Eos # (Auto) 0.1 (0.0-0.4) X10*3/uL Baso # (Auto) 0.0 (0.0-0.2) X10*3/uL Abs Immat Gran (auto) 0.00 (0.00-0.03) X10*3/uL Absolute Neuts (auto) 1.8 L (2.0-8.3) x10*3/uL Absolute Nucleated RBC 0.000 (0.0-0.012) X10*3/uL Nucleated RBC % (auto) 0.0 (0.0-0.2) /100WBC Sodium 142 (135-145) mmol/L Potassium 4.0 (3.3-5.1) mmol/L Chloride 107 (96-108) mmol/L Carbon Dioxide 28 (22-29) mmol/L Anion Gap 11 L (12-20) BUN 11 (9-16) mg/dL Creatinine 0.77 (0.5-1.4) mg/dL Estim Creat Clear Calc 88.8 Estimated GFR > 60 Random Glucose 59 L* (60-115) mg/dL Calcium 9.4 (8.4-10.2) mg/dL Magnesium 2.1 (1.6-2.6) mg/dL Total Bilirubin 0.4 (0.0-1.0) mg/dL AST 29 (5-31) U/L ALT 40 H (0-31) U/L Alkaline Phosphatase 75 (39-117) U/L Troponin I High Sens < 2.7 (<3.5-17.0) ng/L Total Protein 6.8 (6.5-8.0) g/dL Albumin 4.5 (3.5-5.0) g/dL Lipase 35 (8-78) U/L Beta HCG, Quant < 2 mIU/mL Independent Interpretation I performed an independent interpretation of an: EKG ( 73 beats per minute otherwise normal ECG without dysrhythmia, AV breanna blocks or ST-T changes to suspect underlying ACS, my independent interpretation) External Record Review External record reviewed: Outside ED record ( [facility] results: trop x 1 negative 23:04 08/12/25, chest x-ray negative) Discharge Plan Discharge Clinical Impression: Chest pain, precordial Patient Disposition: Home, Self-Care Instructions: Chest Pain (ED) Additional Instructions: Diagnosis and Initial Evaluation: You have been evaluated in the Emergency Department (ED) for chest pain. Based on your clinical assessment, electrocardiogram (ECG), and high-sensitivity cardiac troponin (hs-cTn) levels, you have been classified as low-risk for acute coronary syndrome (ACS) and myocardial infarction (DC). This means that your likelihood of having a heart attack or other serious heart condition in the next 30 days is very low. your glucose was slightly low you were given juice make sure to have a balanced meal Follow-Up Care: ? Primary Care Provider (PCP) or [employer] Furn[employer] Installer Repairer: It is important to follow up with your primary care provider or chicken vaccinator within the next 14 to 30 days. This follow-up is crucial to ensure that any underlying conditions are managed appropriately and to discuss any further testing that may be needed. ? Notification: If you have an established PCP or chicken vaccinator, they have been notified of your ED visit to facilitate continuity of care. Self-Care and Monitoring: ? Medications: Continue taking any prescribed medications as directed. If you have been given new medications, ensure you understand how and when to take them. ? Activity: Resume normal activities as tolerated. Avoid strenuous activities until you have discussed them with your healthcare provider. ? Diet: Maintain a heart-healthy diet, low in saturated fats, cholesterol, and sodium. Red Flags: Seek immediate medical attention if you experience any of the following:Never hesitate to come back to the ER for any concerning symptoms to you. Additional Testing: In some cases, outpatient testing such as a stress test or imaging may be recommended to further evaluate your heart health. Your follow-up provider will discuss this with you if necessary. Mental Health: Anxiety and stress can contribute to chest pain. Consider discussing any concerns with your healthcare provider, who may recommend screening for anxiety or depression and appropriate management strategies. Contact Information: If you have any questions or concerns before your follow-up appointment, please contact your healthcare provider or the ED where you were evaluated. Summary: You have been discharged from the ED with a low risk of serious heart conditions. Follow the instructions above, attend your follow-up appointments, and seek immediate care if you experience any red flags. Print Language: Qatari
[2025-08-13 08:12] VITALS: BP 103/63; PULSE 85; RESP 12; TEMP 36.7; O2SAT 100
[2025-08-13 08:28] LABS: MANUAL DIFF FLAG NO
[2025-08-13 08:29] LABS: Hematocrit 39.4 % (37.0-47.0); Hemoglobin 13.4 g/dl (12.0-16.0); Imm Gran Abs Auto 0.00 X10*3/uL (0.00-0.03); Imm Gran Pct Auto 0.0 % (0.0-0.4); Lymphocytes Absolute Auto 1.8 X10*3/uL (1.2-4.9); Mean Corpuscular HGB Conc 34.0 g/dl (31.0-35.0); Mean Corpuscular Hemoglobin 31.6 pg (27.0-33.0); Mean Corpuscular Volume 92.9 fL (80.0-98.0); NRBC Abs Auto 0.000 X10*3/uL (0.0-0.012); NRBC Pct Auto 0.0 /100WBC (0.0-0.2); Platelet Count 157 X10*3/uL (160-400); Red Blood Count 4.24 X10*6/uL (4.20-5.50); White Blood Count 4.2 X10*3/uL (4.8-10.8)
[2025-08-13] MEDS: diazePAM 10 MG/2 ML CARTRIDGE 2.5 MG IVPUSH (08:41)
[2025-08-13 08:52] LABS: Troponin-I High Sensitivity < 2.7 ng/L (<3.5-17.0)
[2025-08-13 08:55] LABS: Alanine Aminotransferase 40 U/L (0-31); Albumin Level 4.5 g/dL (3.5-5.0); Alkaline Phosphatase 75 U/L (39-117); Anion Gap 11 (12-20); Aspartate Amino Transferase 29 U/L (5-31); Blood Urea Nitrogen 11 mg/dL (9-16); Calcium 9.4 mg/dL (8.4-10.2); Carbon Dioxide 28 mmol/L (22-29); Chloride 107 mmol/L (96-108); Creatinine Clr Calc Pharmacy 88.8; Estimated Glomerular Filt Rate > 60; Lipase 35 U/L (8-78); Magnesium 2.1 mg/dL (1.6-2.6); Potassium 4.0 mmol/L (3.3-5.1); Sodium 142 mmol/L (135-145); Total Protein 6.8 g/dL (6.5-8.0)
[2025-08-13 09:44] VITALS: BP 114/62; PULSE 86; RESP 14; TEMP 36.7; O2SAT 100
== END 2025-08-13 09:45 | disposition home or self-care (01) ==
PROVIDERS: Emergency Provider Emergency Medicine
DX: R07.2 Precordial pain (principal)
CPT/HCPCS: 36415; 80053; 83690; 83735; 84484; 84702; 85025; 93005; 96374; 96375; 99284; 99285; J1885; J3360

== ENCOUNTER → 2025-08-13 07:36 | Outpatient (BNV) | payer BC, SELFPAY | PROVIDERS: Emergency Provider Emergency Medicine; Visit Provider Internal Medicine | DX: R07.9 Chest pain, unspecified (principal) | CPT/HCPCS: 93010 ==